=== PATIENT | female | born 1950 | race Caucasian/White ===

== ENCOUNTER → 2018-08-21 | Outpatient (CLI) | payer MEDICARE, BC ==
--- NOTE | 2018-08-21 08:57 | MY ---
Screening Tomosynthesis Bi HISTORY: Screening COMPARISON: Prior exams. TECHNIQUE: Digital breast tomosynthesis technique performed. C views and 3D source images in the CC and MLO projections reviewed. Computer-Aided Detection system was utilized. BREAST DENSITY: There are scattered areas of fibroglandular density. FINDINGS: There are some benign-appearing stable nodularity. There is no dominant mass, skin thickening, or nipple retraction. No suspicious calcifications are seen. IMPRESSION: No evidence of underlying malignancy or suspicious interval change. RECOMMENDATION: One-year mammographic follow-up is recommended as per ACR guidelines. BI-RADS 2: Benign finding.
== END ==
LOC: JP.MAM 06:43
PROVIDERS: ATTEND Family Medicine
DX: Z12.31 Encounter for screening mammogram for malignant neoplasm of breast (principal)
CPT/HCPCS: 77063; 77063-26; 77067; 77067-26

== ENCOUNTER 2018-08-28 08:49 | Day surgery (SDC) | payer MEDICARE, BC ==
[2018-08-28] MEDS ORDERED: Midazolam 1 MG/ML 2 ML SDV ONE (09:35)
[2018-08-28] MEDS ORDERED: Propofol 200 MG/20 ML SDV ONE (09:35)
[2018-08-28] MEDS ORDERED: fentaNYL 100 MCG/2 ML SDV ONE (09:35)
[2018-08-28] MEDS ORDERED: Lactated Ringers 1,000 ML IV SCH (09:45)
--- NOTE | 2018-08-29 08:03 | OR ---
DATE OF PROCEDURE: 08/28/2018 PREOPERATIVE DIAGNOSIS: History of colon polyps. POSTOPERATIVE DIAGNOSES: Diverticulosis, history of colon polyps. PROCEDURE: Colonoscopy to the cecum. SURGEON: Cortez Vincent MD ANESTHESIA: IV anesthesia with monitored anesthesia care. INDICATION: This 67-year-old white female is here for a colonoscopy. She has a history of colon polyps. She says her last colonoscopic exam was done 8 years ago. I counseled her for the procedure, including risks and alternatives, and she gave her informed consent to proceed. DESCRIPTION OF PROCEDURE: The patient was placed in the left lateral decubitus position. IV anesthesia was administered by the Anesthesia Service. Time-out was held. A rectal exam was performed, which was unremarkable. The flexible video Olympus colonoscope was introduced through her anus, up her rectum and out her colon, all the way to the cecum. En route, we saw a few scattered left-sided diverticula. There was no bleeding or inflammation associated with them. Once the cecum was reached, the scope was slowly withdrawn examining the mucosa throughout. No other mucosal abnormalities were noted. The scope was retroflexed in the rectum with the distal rectum appearing unremarkable. The scope was straightened and removed. She tolerated the procedure well. Cortez Vincent MD /[id number]
== END 2018-08-28 11:47 | disposition home or self-care (01) ==
LOC: JP.SDS 08:49
PROVIDERS: ATTEND Surgery
DX: Z12.11 Encounter for screening for malignant neoplasm of colon (principal); K57.30 Diverticulosis of large intestine without perforation or abscess without bleeding; Z86.010 Personal history of colon polyps
CPT/HCPCS: G0121; J2250; J2704; J3010; J7120

== ENCOUNTER 2018-12-15 03:41 | Emergency (ER) | payer MEDICARE, BC ==
[2018-12-15] MEDS ORDERED: Alum Hydrox/Mag Hydrox/Simeth 15 ML, Lidocaine 2% 15 ML PO ONE ×2 (04:08)
[2018-12-15] MEDS ORDERED: fentaNYL 100 MCG/2 ML SDV IVPUSH ONE (04:16)
[2018-12-15] MEDS ORDERED: Sodium Chloride 0.9% 10 ML Syringe FLUSH PRN (04:16)
[2018-12-15] MEDS ORDERED: Sodium Chloride 0.9% 1,000 ML IV SCH (04:45)
[2018-12-15] MEDS ORDERED: Ondansetron 4 MG/2 ML SDV IVPUSH ONE (04:45)
[2018-12-15] MEDS ORDERED: Iopamidol 612 MG/ML 150 ML Bottle IV PRN (05:13)
[2018-12-15] MEDS ORDERED: Sodium Chloride 0.9% 10 ML Syringe FLUSH SCH (05:15)
--- NOTE | 2018-12-15 05:23 | EDM.PDOC ---
ED HPI GENERAL MEDICAL PROBLEM - General Chief Complaint: Chest Pain Stated Complaint: MIDDLE OF CHEST AND BACK PAINS Time Seen by Provider: 12/15/18 04:00 Source of Information: Reports: Patient, Family History Limitations: Reports: No Limitations - History of Present Illness INITIAL COMMENTS - FREE TEXT/NARRATIVE: 60-year-old female woke up with upper abdomen and mid back pain at 1 AM. It was sharp and uncomfortable, but caused no shortness of breath, diaphoresis and only mild nausea. No vomiting. Pain radiating to the back in the middle of her shoulders, not to the arms or neck. She tried to Zantac without relief. By 4 AM it was still very painful so she came in to be checked. She has no prior cardiac history, no cardiac workups or testing. She is relatively healthy. Onset: Unknown/Unsure (Woke with pain at 1 AM) Location: Reports: Chest, Abdomen, Back Quality: Reports: Sharp, Stabbing Severity: Moderate Worsens with: Reports: Other (Somewhat worse with deep breath) Associated Symptoms: Reports: Chest Pain, Malaise. Denies: Cough, Diaphoresis, Shortness of Breath, Weakness Middle Chest Pain Score (Numeric/FACES): 7 - Related Data Allergies Allergy/AdvReac Type Severity Reaction Status Date / Time No Known Allergies Allergy Verified 08/26/18 08:13 Home Meds: Home Meds Aspirin [Children's Aspirin] 81 mg PO DAILY 08/26/18 [History] Calcium Carbonate/Vitamin D3 [Calcium 600 + Vit D 200] 1 tab PO DAILY 08/26/18 [ History] Past Medical History HEENT History: Reports: Impaired Vision Other HEENT History: wears glasses Cardiovascular History: Reports: Arrhythmia Gastrointestinal History: Reports: Colon Polyp Genitourinary History: Reports: None 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: Musculoskeletal History: Reports: Fracture Endocrine/Metabolic History: Reports: Obesity/BMI 30+ - Infectious Disease History Infectious Disease History: Reports: Chicken Pox, Measles, Mumps, Rubella - Past Surgical History HEENT Surgical History: Reports: None Cardiovascular Surgical History: Reports: None GI Surgical History: Reports: Colonoscopy, Polypectomy Female Surgical History: Reports: Breast Biopsy, Hysterectomy Endocrine Surgical History: Reports: None Musculoskeletal Surgical History: Reports: Other (See Below) Other Musculoskeletal Surgeries/Procedures:: leg surgery Dermatological Surgical History: Reports: None Social & Family History - Family History Family Medical History: Noncontributory - Tobacco Use Smoking Status *Q: Never Smoker - Caffeine Use Caffeine Use: Reports: Soda Caffeine Use Comment: daily basis - Recreational Drug Use Recreational Drug Use: No ED ROS GENERAL - Review of Systems Review Of Systems: See Below Constitutional: Reports: Malaise. Denies: Fever, Chills HEENT: Reports: No Symptoms Respiratory: Reports: Pleuritic Chest Pain. Denies: Shortness of Breath Cardiovascular: Reports: Chest Pain. Denies: Palpitations GI/Abdominal: Reports: Abdominal Pain, Nausea. Denies: Constipation, Diarrhea, Vomiting : Reports: No Symptoms Musculoskeletal: Reports: No Symptoms Skin: Reports: No Symptoms Neurological: Reports: No Symptoms Psychiatric: Reports: Anxiety ED EXAM, GENERAL - Physical Exam Exam: See Below Exam Limited By: No Limitations General Appearance: Alert, Anxious, Mild Distress (Fairly uncomfortable) Eye Exam: Bilateral Eye: Normal Inspection (No jaundice) Head: Atraumatic Neck: Normal Inspection Respiratory/Chest: No Respiratory Distress, Lungs Clear Cardiovascular: Regular Rate, Rhythm GI/Abdominal: Soft, Tender (She was tender in the epigastric area and the right upper quadrant, positive Blake's) Neurological: Alert, Oriented Psychiatric: Anxious Skin Exam: Warm, Dry EKG INTERPRETATION Rhythm: NSR Course - Vital Signs Last Recorded V/S: Last Vital Signs Temp 98.1 F 12/15/18 03:51 Pulse 63 12/15/18 06:50 Resp 16 12/15/18 06:50 BP 158/69 H 12/15/18 06:50 Pulse Ox 96 12/15/18 06:50 - Orders/Labs/Meds Orders: Active Orders 24 hr Category Date Time Status EKG Documentation Completion [RC] ASDIRECTED Care 12/15/18 04:06 Active Saline Lock Insert [OM.PC] Routine Oth 12/15/18 04:16 Ordered EKG 12 Lead [EK] Routine Ther 12/15/18 04:06 Ordered Labs: Laboratory Tests 12/15/18 12/15/18 Range/Units 04:30 04:35 WBC 8.9 (4.5-11.0) K/uL RBC 4.57 (3.30-5.50) M/uL Hgb 13.7 (12.0-15.0) g/dL Hct 41.3 (36.0-48.0) % MCV 90 (80-98) fL MCH 30 (27-31) pg MCHC 33 (32-36) % Plt Count 256 (150-400) K/uL Neut % (Auto) 73 H (36-66) % Lymph % (Auto) 17 L (24-44) % Piatt % (Auto) 9 H (2-6) % Eos % (Auto) 1 L (2-4) % Baso % (Auto) 1 (0-1) % Sodium 140 (140-148) mmol/L Potassium 4.0 (3.6-5.2) mmol/L Chloride 103 (100-108) mmol/L Carbon Dioxide 24 (21-32) mmol/L Anion Gap 12.6 (5.0-14.0) mmol/L BUN 21 H (7-18) mg/dL Creatinine 1.0 (0.6-1.0) mg/dL Est Cr Clr Drug Dosing 48.45 mL/min Estimated GFR (MDRD) 55 L (>60) Glucose 138 H (74-106) mg/dL Calcium 9.2 (8.5-10.1) mg/dL Total Bilirubin 0.8 (0.2-1.0) mg/dL AST 238 H (15-37) U/L ALT 141 H (12-78) U/L Alkaline Phosphatase 95 (46-116) U/L Troponin I < 0.017 (0.000-0.056) ng/mL Total Protein 7.6 (6.4-8.2) g/dL Albumin 3.5 (3.4-5.0) g/dL Globulin 4.1 H (2.3-3.5) g/dL Albumin/Globulin Ratio 0.9 L (1.2-2.2) Amylase 33 (25-115) U/L Lipase 210 (73-393) U/L Meds: Medications Discontinued Medications Generic Name Dose Route Start Last Admin Trade Name Freq PRN Reason Stop Dose Admin Al Hydroxide/Mg Hydroxide 15 0 ml 12/15/18 04:08 12/15/18 04:29 ml/ Lidocaine HCl 15 ml PO 12/15/18 04:09 30 ml ONETIME ONE Administration Fentanyl 25 mcg 12/15/18 04:16 12/15/18 04:39 Sublimaze IVPUSH 12/15/18 04:17 25 mcg ONETIME ONE Administration Sodium Chloride 1,000 mls @ 999 mls/hr 12/15/18 04:45 12/15/18 04:52 Normal Saline IV 999 mls/hr ASDIRECTED MILLIE Administration Sodium Chloride 81 mls @ 3.5 mls/sec 12/15/18 05:15 12/15/18 05:25 Normal Saline IV 3.5 mls/sec ASDIRECTED MILLIE Administration Iopamidol 132 ml 12/15/18 05:13 12/15/18 05:25 Isovue-300 (61%) IV 12/16/18 05:14 132 ml . DIRECTED PRN Administration RADIOLOGY EXAM Ketorolac Tromethamine 30 mg 12/15/18 07:24 12/15/18 07:31 Toradol IVPUSH 12/15/18 07:25 30 mg ONETIME ONE Administration Metoprolol Tartrate 5 mg 12/15/18 05:48 12/15/18 05:54 Lopressor IVPUSH 12/15/18 05:49 5 mg ONETIME ONE Administration Ondansetron HCl 4 mg 12/15/18 04:45 12/15/18 04:51 Zofran IVPUSH 12/15/18 04:46 4 mg ONETIME ONE Administration Sodium Chloride 10 ml 12/15/18 04:16 12/15/18 04:28 Saline Flush FLUSH 10 ml ASDIRECTED PRN Administration Keep Vein Open Sodium Chloride 10 ml 12/15/18 05:15 12/15/18 05:26 Saline Flush FLUSH 10 ml ONETIME MILLIE Administration - Re-Assessments/Exams Free Text/Narrative Re-Assessment/Exam: 12/15/18 05:21 EKG was done which was normal. CBC CMP lipase and amylase and troponin were obtained. Patient was given a GI cocktail GI cocktail didn't seem to help, so she was given 25 g of IV fentanyl and 4 mg of Zofran. She was bolused with 1 L of normal saline and a CT of the chest and abdomen was ordered with IV contrast to assess the aorta. White count returned normal, AST and ALT were elevated. Bilirubin and normal alkaline phosphatase normal troponin 0. 12/15/18 06:21 IMPRESSION: 1. Mild gallbladder distention although without evidence of cholelithiasis or gallbladder wall thickening. 2. Bilateral lower lobe and lingular ground-glass opacities. Differential diagnosis includes subsegmental atelectasis, pneumonitis or viral pneumonia. 3. Colonic diverticulosis without won diverticulitis. 4. Mild dilatation of the pulmonary artery consistent with pulmonary arterial hypertension. Even after the IV fentanyl, the patient continued to have mid back pain. Systolic blood pressure was over 200 should she was given 5 mg of IV Lopressor pending the CT result. The CT confirmed no aortic dissection, the patient was reexamined and was still having upper abdominal pain so a gallbladder ultrasound was ordered. 12/15/18 07:52 Gallbladder ultrasound showed stool in the neck of the gallbladder but no significant wall thickening or pericholecystic fluid. The patient was given 30 mg of IV Toradol with marked pain relief. There are no beds in the hospital at this time and the patient is willing to try a course of Toradol for the next 1- 2 days and return if not improving. She was given 10 additional 10 mg doses. Departure - Departure Time of Disposition: 08:34 Disposition: Home, Self-Care 01 Clinical Impression: Abdominal pain Qualifiers: Abdominal location: upper abdomen, unspecified Qualified Code(s): R10.10 - Upper abdominal pain, unspecified Back pain Qualifiers: Back pain location: thoracic back pain Chronicity: acute Back pain laterality: midline Qualified Code(s): M54.6 - Pain in thoracic spine Cholelithiasis Qualifiers: Cholelithiasis location: gallbladder Cholecystitis presence: without cholecystitis Biliary obstruction: without biliary obstruction Qualified Code(s) : K80.20 - Calculus of gallbladder without cholecystitis without obstruction - Discharge Information Instructions: Nonspecific Chest Pain Referrals: PCP,None [Primary Care Provider] - Forms: ED Department Discharge Care Plan Goals: Take 1 tablet of ketorolac every 6 hours for the next 1-2 days, and return if worsening such as fever or increased pain despite treatment. - My Orders Last 24 Hours: My Active Orders 12/15/18 04:06 EKG Documentation Completion [RC] ASDIRECTED EKG 12 Lead [EK] Routine 12/15/18 04:16 Saline Lock Insert [OM.PC] Routine - Assessment/Plan Last 24 Hours: My Active Orders 12/15/18 04:06 EKG Documentation Completion [RC] ASDIRECTED EKG 12 Lead [EK] Routine 12/15/18 04:16 Saline Lock Insert [OM.PC] Routine
[2018-12-15] MEDS ORDERED: Metoprolol Tartrate 5 MG/5 ML SDV IVPUSH ONE (05:48)
--- NOTE | 2018-12-15 06:11 | CRLCT ---
INDICATION: Right-sided abdominal pain TECHNIQUE: CT chest, abdomen and pelvis acquired with 132 cc Isovue-300 intravenous contrast. COMPARISON: None. FINDINGS: CHEST: Mediastinum: The thyroid gland is unremarkable. No enlarged mediastinal lymph nodes. Trace pericardial fluid. Thoracic aorta is normal in caliber. Mild central dilatation of the pulmonary artery with tapering in the yeimy. Lungs and pleura: No pleural effusion or pneumothorax. 2 millimeter noncalcified pulmonary nodule right upper lobe (4, 35). 3 millimeter pulmonary nodule right middle lobe (4, 55). Mild ground-glass opacities within the bilateral lower lobes and lingula. Chest wall and axilla: No mass or adenopathy. Bones: No suspicious bone lesions. Unremarkable for age. ABDOMEN AND PELVIS: Liver: Normal in contour with hepatic cysts in the left lobe. Gallbladder and bile ducts: Mild gallbladder distention although without evidence of cholelithiasis or pericholecystic inflammation by CT. Pancreas: Unremarkable. Spleen: Unremarkable. Adrenal glands: Unremarkable. Kidneys: Symmetric renal enhancement with bilateral peripelvic cysts as well as bilateral subcentimeter cortical cysts. No hydronephrosis. GI tract: The stomach is unremarkable. There are no dilated loops of large or small intestine. Appendix unremarkable. Colonic diverticulosis without localizing inflammation. Vascular structures: Unremarkable. Pelvic Organs: Bladder is unremarkable. Status post hysterectomy. Bones: Prior screw fixation left proximal femur. IMPRESSION: 1. Mild gallbladder distention although without evidence of cholelithiasis or gallbladder wall thickening. 2. Bilateral lower lobe and lingular ground-glass opacities. Differential diagnosis includes subsegmental atelectasis, pneumonitis or viral pneumonia. 3. Colonic diverticulosis without won diverticulitis. 4. Mild dilatation of the pulmonary artery consistent with pulmonary arterial hypertension. Please note that all CT scans at this facility use dose modulation, iterative reconstruction, and/or weight-based dosing when appropriate to reduce radiation dose to as low as reasonably achievable. Dictated by Dalton Ashley MD @ Dec 15 2018 6:00AM Signed by Dr. Dalton Ashley @ Dec 15 2018 6:10AM
[2018-12-15] MEDS ORDERED: Ketorolac 30 MG/ML SDV IVPUSH ONE (07:24)
--- NOTE | 2018-12-15 08:36 | CRLUS ---
Indication: Abdominal pain. Back pain. Technique: Grayscale and color Doppler ultrasound of the right upper quadrant was performed. Comparison: None Findings: The aorta measures maximum of 1.7 centimeters in diameter. The liver is homogeneous in echotexture. No intrahepatic biliary ductal dilatation is identified. The liver measures 13.3 cm in dimension. Portal vein is patent. Portal vein is patent. The common bile duct measures 4 mm in size. A stone is identified within the gallbladder neck measuring 1 cm in size. This is nonmobile and does produce shadowing. The wall of the gallbladder measures 3 mm in size. No pericholecystic free fluid is identified. A sonographic Blake sign is not present. Within the left lobe of the liver, a 5 millimeter cyst is identified in the right lobe of the liver, at the dome, a 1.3 x 1.2 x 1.4 centimeter cyst is identified. The kidney measures 11.5 x 4.5 x 5.5 cm in size. No hydronephrosis is identified. Normal color flow is identified to the right kidney. The cortex measures 1.1 cm in size. No free fluid is identified within the right upper quadrant. The visualized portions of the pancreas are grossly normal. Impression: Gallstone identified within the neck of the gallbladder, measuring 1 cm in size. No pericholecystic free fluid. Common bile duct is normal in limits. The gallbladder wall is at the upper limits of normal in size. Two small hepatic cysts. Dictated by Miladis Bernal MD @ Dec 15 2018 8:11AM Signed by Dr. Miladis Bernal @ Dec 15 2018 8:34AM
== END 2018-12-15 08:34 | disposition home or self-care (01) ==
LOC: JP.ED 03:41
DX: K80.20 Calculus of gallbladder without cholecystitis without obstruction (principal); R07.81 Pleurodynia; F41.9 Anxiety disorder, unspecified; R53.81 Other malaise; E66.9 Obesity, unspecified; Z68.32 Body mass index [BMI] 32.0-32.9, adult; Z79.82 Long term (current) use of aspirin
CPT/HCPCS: 36415; 71260; 74177; 76705; 80053; 82150; 83690; 84484; 85025; 93005; 96374; 96375; 99285; A9270; J1885; J2405; J3010; J3490; J7030; 93010; 99284

== ENCOUNTER 2021-02-22 00:37 | Emergency (ER) | payer MEDICARE ==
--- NOTE | 2021-02-22 01:00 | EDM.PDOC ---
ED HPI GENERAL MEDICAL PROBLEM - General Chief Complaint: Cardiovascular Problem Stated Complaint: RACING HEART RATE Time Seen by Provider: 02/22/21 00:40 Source of Information: Reports: Patient, Family History Limitations: Reports: No Limitations - History of Present Illness INITIAL COMMENTS - FREE TEXT/NARRATIVE: 70-year-old female who over the past several years has had intermittent episodes of rapid heartbeat that starts and stops suddenly and usually only lasts a few minutes. She had a full physical recently, did have a cardiac cath tech for a week but everything was fine. Tonight she redeveloped symptoms as she was laying down to go to bed, and after it lasted for 2 hours she figured she better have it checked. No shortness of breath or chest pain. Onset: Sudden Duration: Hour(s): (Symptoms for 2 hours) Associated Symptoms: Reports: No Other Symptoms - Related Data Allergies Allergy/AdvReac Type Severity Reaction Status Date / Time No Known Allergies Allergy Verified 02/22/21 00:57 Home Meds: Home Meds Aspirin [Children's Aspirin] 81 mg PO DAILY 08/26/18 [History] Calcium Carbonate/Vitamin D3 [Calcium 600 + Vit D 200] 1 tab PO DAILY 08/26/18 [History] Omeprazole Magnesium [Prilosec Otc] 20 mg PO DAILY 02/22/21 [History] Past Medical History HEENT History: Reports: Impaired Vision Other HEENT History: wears glasses Cardiovascular History: Reports: Arrhythmia Gastrointestinal History: Reports: Colon Polyp Genitourinary History: Reports: None 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: Musculoskeletal History: Reports: Fracture Endocrine/Metabolic History: Reports: Obesity/BMI 30+ - Infectious Disease History Infectious Disease History: Reports: Chicken Pox, Measles, Mumps, Rubella - Past Surgical History HEENT Surgical History: Reports: None Cardiovascular Surgical History: Reports: None GI Surgical History: Reports: Colonoscopy, Polypectomy Female Surgical History: Reports: Breast Biopsy, Hysterectomy Endocrine Surgical History: Reports: None Musculoskeletal Surgical History: Reports: Other (See Below) Other Musculoskeletal Surgeries/Procedures:: leg surgery Dermatological Surgical History: Reports: None Social & Family History - Family History Family Medical History: No Pertinent Family History - Caffeine Use Caffeine Use: Reports: Soda Caffeine Use Comment: daily basis ED ROS GENERAL - Review of Systems Review Of Systems: See Below Constitutional: Denies: Fever, Chills HEENT: Denies: Throat Pain Respiratory: Denies: Shortness of Breath, Cough Cardiovascular: Reports: Palpitations. Denies: Chest Pain GI/Abdominal: Denies: Abdominal Pain, Nausea, Vomiting Skin: Reports: No Symptoms ED EXAM, GENERAL - Physical Exam Exam: See Below Exam Limited By: No Limitations General Appearance: Alert, No Apparent Distress Head: Atraumatic Respiratory/Chest: No Respiratory Distress, Lungs Clear Cardiovascular: Regular Rate, Rhythm, Tachycardia (Rate of about 180, very regular) GI/Abdominal: Soft, Non-Tender Extremities: Normal Inspection. No: Pedal Edema Neurological: Alert, Oriented Course - Vital Signs Last Recorded V/S: Last Vital Signs Temp 95.8 F L 02/22/21 00:49 Pulse 80 02/22/21 01:08 Resp 22 H 02/22/21 00:49 BP 138/67 02/22/21 01:08 Pulse Ox 97 02/22/21 00:49 - Re-Assessments/Exams Free Text/Narrative Re-Assessment/Exam: 02/22/21 00:59 Patient is obviously in SVT, while she was being hooked up to the cardiac cath tech I did a carotid body massage on the left side and it converted her to sinus rhythm. She is asymptomatic and would like no further work-up or treatment at this time. Departure - Departure Time of Disposition: 01:08 Disposition: Home, Self-Care 01 Clinical Impression: SVT (supraventricular tachycardia) Instructions: Supraventricular Tachycardia, Adult, [id number] Referrals: Annita Gonzales DO [Primary Care Provider] - Forms: ED Department Discharge Care Plan Goals: Resume regular activity and diet, avoid stimulants such as caffeine if possible and return anytime if palpitations or symptoms recur and are persistent. Sepsis Event Note (ED) - Focused Exam Vital Signs: Vital Signs Temp Pulse Resp BP Pulse Ox 02/22/21 01:08 80 138/67 02/22/21 00:49 95.8 F L 95 22 H 171/74 H 97
== END 2021-02-22 01:08 | disposition home or self-care (01) ==
LOC: JP.ED 00:37
DX: I47.1 Supraventricular tachycardia (principal); E66.9 Obesity, unspecified; Z68.32 Body mass index [BMI] 32.0-32.9, adult; Z79.82 Long term (current) use of aspirin
CPT/HCPCS: 99284

== ENCOUNTER 2024-04-05 14:59 | Emergency (ER) | payer MEDICARE ==
[2024-04-05] MEDS: Verapamil 180 MG Tab.ER PO ONE (15:24)
== END 2024-04-05 15:48 | disposition home or self-care (01) ==
LOC: JP.ED 14:59
DX: I47.10 Supraventricular tachycardia, unspecified (principal); E78.00 Pure hypercholesterolemia, unspecified; E66.9 Obesity, unspecified; Z90.49 Acquired absence of other specified parts of digestive tract; Z90.710 Acquired absence of both cervix and uterus; Z86.16 Personal history of COVID-19; Z79.899 Other long term (current) drug therapy; Z91.09 Other allergy status, other than to drugs and biological substances; Z68.33 Body mass index [BMI] 33.0-33.9, adult
CPT/HCPCS: 93005; 99284; A9270; 93010

== ENCOUNTER 2024-10-13 08:13 | Emergency (ER) | payer MEDICARE, BC ==
[2024-10-13] MEDS ORDERED: Adenosine 6 MG/2 ML SDV IVPUSH ONE (08:26)
[2024-10-13] MEDS: Adenosine 6 MG/2 ML SDV IVPUSH ONE (08:32)
[2024-10-13] MEDS: Sodium Chloride 0.9% 10 ML Syringe FLUSH PRN (08:33)
[2024-10-13 08:34] LABS: BASOPHILS ABSOLUTE AUTO 0.09 K/uL (0.00-0.10); BASOPHILS PERCENT AUTO 1.2 % (0.1-1.3); EOSINOPHILS ABSOLUTE AUTO 0.09 K/uL (0.00-0.40); EOSINOPHILS PERCENT AUTO 1.2 % (0.0-5.4); HEMATOCRIT 44.6 % (34.3-46.0); IMMATURE GRAN PERCENT AUTO 0.3 % (0.0-0.7); LYMPHOCYTES ABSOLUTE AUTO 2.31 K/uL (0.8-3.3); LYMPHOCYTES PERCENT AUTO 29.9 % (11.4-47.7); MEAN CORPUSCULAR HEMOGLOBIN 30.9 pg (31.6-35.5); MEAN CORPUSCULAR HGB CONC 33.6 g/dL (31.6-35.5); MEAN CORPUSCULAR VOLUME 91.8 fL (81.4-99.0); MONOCYTES ABSOLUTE AUTO 0.65 K/uL (0.20-0.90); MONOCYTES PERCENT AUTO 8.4 % (3.3-12.6); NEUTROPHILS ABSOLUTE AUTO 4.56 K/uL (1.0-7.6); PLATELET COUNT,PLT 272 K/uL (130-375); RED BLOOD CELL COUNT 4.86 M/uL (3.77-5.24); WHITE BLOOD CELL COUNT,WBC 7.7 K/uL (3.2-11.0)
[2024-10-13 08:35] LABS: IMMATURE GRAN ABSOLUTE AUTO 0.02 K/uL (0.00-0.23)
[2024-10-13 08:58] LABS: ANION GAP 5.8 mmol/L (5.0-14.0); CALCIUM 9.5 mg/dL (8.5-10.1); CREATININE 1.1 mg/dL (0.6-1.0); EST CRCL DRUG DOSING (CG) 40.38 mL/min; MAGNESIUM 2.2 mg/dL (1.8-2.4); POTASSIUM,K 4.3 mmol/L (3.6-5.2)
== END 2024-10-13 10:29 | disposition home or self-care (01) ==
LOC: JP.ED 08:13
DX: I47.10 Supraventricular tachycardia, unspecified (principal); E80.0 Hereditary erythropoietic porphyria; E66.9 Obesity, unspecified; Z90.49 Acquired absence of other specified parts of digestive tract; Z79.899 Other long term (current) drug therapy; Z91.048 Other nonmedicinal substance allergy status
CPT/HCPCS: 36415; 71045; 80048; 83735; 84484; 85025; 93005; 96374; 99285; J0153